=== PATIENT | male | born 1995 | race Caucasian/White ===

== ENCOUNTER 2016-11-09 14:21 | Emergency (ER) | payer SELFPAY ==
[~2016-11-09] VITALS: Ht 170.2 cm; Wt 69.0 kg
[~2016-11-09 14:21] MED LIST: FLEXERIL10 MG PO; FOCALIN XR20 MG; FOCALIN10 MG PO; LEXAPRO10 MG; LEXAPRO10 MG PO; MOBIC15 MG PO; NAPROSYN500 MG PO; RISPERDAL0.5 MG PO; RISPERIDONE0.5 MG
[2016-11-09 14:42] VITALS: BP 135/97
[2016-11-09] MEDS ORDERED: NORCO 5/3251 TABLET PO (16:09)
[2016-11-09] MEDS ORDERED: MOTRIN800 MG PO (16:09)
== END 2016-11-09 16:36 | disposition home or self-care (01) ==
LOC: EME 14:21
DX: K08.89 Other specified disorders of teeth and supporting structures (principal)
CPT/HCPCS: 99281; 99284